=== PATIENT | male | born 1965 | race American Indian/Alaskan Native ===

== ENCOUNTER 2018-02-17 10:18 | Inpatient (IN) | payer MEDICAID ==
[2018-02-17 10:22] VITALS: BMI 28.5
[2018-02-17 10:24] VITALS: O2SAT 97
--- NOTE | 2018-02-17 10:53 | C.PDOC ---
History Of Present Illness 52 y/o male presents to the ED requesting detox from yesterday. He admits last using yesterday. The patient reports experiencing myalgia nausea. He denies any other drug use. The patient also denies any SI/HI, vomiting or SA. REQUESTING HEROIN DETOX, LAST YEST. +MYALGIA, NAUSEA. DENIES OTHER DRUG USE OR SX EXAM MILD DIST NONTOXIC PSYCH CALM COOPERATIVE, NO SI/SA, +MILD WITHDRAWAL REMAINDER NEG Time Seen by Provider: 02/17/18 10:29 Chief Complaint (Nursing): Substance Abuse History Per: Patient History/Exam Limitations: no limitations Onset/Duration Of Symptoms: Days Modifying Factor(s): Other (Heroin) Associated Symptoms: denies: Suicidal Thoughts, Suicidal Plan Recent travel outside of the [place]: No Past Medical History Reviewed: Historical Data, Nursing Documentation, Vital Signs Vital Signs: Last Vital Signs Temp 98.3 F 02/18/18 06:36 Pulse 49 L 02/18/18 06:36 Resp 18 02/18/18 06:36 BP 148/77 02/18/18 06:36 Pulse Ox 97 02/18/18 13:26 - Medical History PMH: No Chronic Diseases Other Surgeries: spine surgery Family History: States: Unknown Family Hx - Social History Hx Tobacco Use: Yes (>10 cigarettes a day) Hx Alcohol Use: No Hx Substance Use: Yes - Immunization History Hx Tetanus Toxoid Vaccination: No Hx Influenza Vaccination: No Hx Pneumococcal Vaccination: No Review Of Systems Except As Marked, All Systems Reviewed And Found Negative. Constitutional: Negative for: Fever, Chills, Sweats Gastrointestinal: Positive for: Nausea Musculoskeletal: Positive for: Other (myalgia) Psych: Positive for: Withdrawal. Negative for: Anxiety, Depression, Suicidal ideation, Other (Suicidal attempt) Physical Exam - Physical Exam Appears: Non-toxic, Other (Mild distress) Skin: Normal Color, Warm, Dry Head: Atraumatic, Normacephalic Eye(s): bilateral: Normal Inspection Ear(s): Bilateral: Normal Oral Mucosa: Moist Neck: Normal ROM Chest: Symmetrical Cardiovascular: Rhythm Regular, No Murmur Respiratory: Other (NARD) Pulses: Left Radial: Normal, Right Radial: Normal Neurological/Psych: Other (calm, cooperative, No SI/SA, mild withdrawal ) Gait: Steady ED Course And Treatment - Laboratory Results Result Diagrams: 02/17/18 11:26 02/17/18 11:26 O2 Sat by Pulse Oximetry: 97 (RA) Pulse Ox Interpretation: Normal Progress - Re-Evaluation Re-evaluation Note: 02/17/18 10:30 PT ADVISED NO DETOX BEDS AVAIL. OFFERED TO BE PUT ON PRESCREEN LIST. PT NOW STATES IS SUICIDAL AND NOW EXPRESSES MULTIPLE PLANS TO HURT HIMSELF DESPITE PREV DENYING BEING SUICIDAL ON INITIAL EXAM. S/P EVAL CRISIS [place], ADVISED PT OF PSYCH ADMISSION PROCESS. PT NO LONGER WISHES DETOX. 02/17/18 12:20 PAINLESS HEMATURIA, NO WBC, LE OR NITRATES. UCX SENT. RECOMMEND MED CONSULT PRN MED CLEAR FOR PSYCH. CRISIS NOTIFIED - Data Reviewed Data Reviewed: Lab, Diagnostic imaging, Old records Medical Decision Making Medical Decision Making: Impression: 52 y/o pt requesting detox from heroin. Last use yesterday. 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 - Scribe Statement The provider has reviewed the documentation as recorded by the Scribe (Gracie Rapp) All medical record entries made by the Scribe were at my direction and personally dictated by me. I have reviewed the chart and agree that the record accurately reflects my personal performance of the history, physical exam, medical decision making, and the department course for this patient. I have also personally directed, reviewed, and agree with the discharge instructions and disposition. Decision To Admit - Pt Status Changed To: Hospital Disposition Of: Inpatient - Admit Certification Admit to Inpatient:: After my assessment, the patient will require hospitalization for at least two midnights. This is because of the severity of symptoms shown, intensity of services needed, and/or the medical risk in this patient being treated as an outpatient. - InPatient: Physician Admission Certification: I certify that this patient requires 2 or more midnights of care for the following reason:: SEE NOTE - . Bed Request Type: Detox Admitting Physician: Denae Jorgensen Patient Diagnosis: Substance or medication-induced depressive disorder
[2018-02-17 11:32] LABS: BASO # 0.1 K/uL (0.0-0.2); BASO % 0.7 % (0.0-2.0); EOS # 0.1 K/uL (0.0-0.7); EOS % 0.9 % (0.0-4.0); HEMOGLOBIN 11.8 g/dL (12.0-18.0); LYMPH # 2.5 K/uL (1.0-4.3); LYMPH % 25.4 % (20.0-40.0); MEAN CELL VOLUME 89.6 fL (80.0-94.0); MEAN CORPUSCULAR HEMOGLOBIN 31.3 pg (27.0-31.0); MEAN PLATELET VOLUME 7.6 fL (7.2-11.7); MONO # 0.7 K/uL (0.0-0.8); MONO % 7.2 % (0.0-10.0); NEUT # 6.6 K/uL (1.8-7.0); NEUT % 65.8 % (50.0-75.0); RBC 3.76 Mil/uL (4.40-5.90); RED CELL DISTRIBUTION WIDTH 13.9 % (11.5-14.5)
[2018-02-17 11:39] LABS: SQUAMOUS EPITHIAL 1 /hpf (0-5); URINE BACTERIA OCC (<OCC); URINE BILIRUBIN NEGATIVE (NEGATIVE); URINE BLOOD 3+ (NEGATIVE); URINE CLARITY Hazy (Clear); URINE COLOR Yellow (YELLOW); URINE GLUCOSE (UA) NORMAL (Normal); URINE LEUKOCYTE ESTERASE NEG Leu/uL (Negative); URINE PROTEIN 1+ mg/dL (NEGATIVE); WBC CLUMPS FEW /hpf
[2018-02-17 11:47] LABS: ALB/GLOB RATIO 1.3 (1.0-2.1); ALBUMIN 3.7 g/dL (3.5-5.0); ALT/SGPT 36 U/L (21-72); AST/SGOT 37 U/L (17-59); BLOOD UREA NITROGEN 12 mg/dL (9-20); CALCIUM 8.7 mg/dl (8.6-10.4); GFR NON-AFRICAN AMERICAN > 60
[2018-02-17 11:52] LABS: BARBITURATES, UR NEGATIVE (NEGATIVE); BENZODIAZEPINES, UR NEGATIVE (NEGATIVE); PHENCYCLIDINE, UR NEGATIVE (NEGATIVE)
[2018-02-17 12:19] LABS: OPIATES, UR POSITIVE (NEGATIVE)
--- NOTE | 2018-02-17 15:03 | PCM.BM ---
<Candelaria Subramanian - Last Filed: 02/17/18 15:01> Treatment Plan Problems - Problems identified on initial assessmt depression Date Initiated: 02/17/18 Time Initiated: 15:02 Assessment reference: NA Status: Active substance abuse Date Initiated: 02/17/18 Time Initiated: 15:03 Assessment reference: NA Status: Active Treatment assets and liabiliti Patient Assests: cooperative, ADL independent, cognitively intact Patient Liabilities: poor support system, substance abuse - Milieu Protocol Maintain good personal hygiene: daily Encourage regular showers Conduct patient checks and document Observation sheet: Q15 minutes Maintain personal safety: every shift Educate patient to report safety concerns to staff, every shift Monitor environment for contraband/sharps Medication safety: Monitor for expected outcome, potential side effects: every shift, Assess barriers to learning: every shift, Assess readiness for medication education: every shift <Denae Jorgensen - Last Filed: 02/19/18 11:18> - Diagnosis (1) Major depressive disorder, recurrent severe without psychotic features Status: Acute Interventions: 02/19/18 11:19 * Assess/adjust medications daily and /or as needed * See patient on an individual basis 7x/week to assess symptoms of depression * Monitor for side effects & effectiveness of medications * (2) Opioid use disorder, severe, dependence Status: Acute Interventions: 02/19/18 11:20 * Assess 7x/week regarding severity of withdrawal * Educate regarding risks, benefits, side effects and alternatives of medications * Use Motivational Interviewing for abstinence * Use CBT for relapse prevention * Medication management for withdrawal symptoms * Encourage medication assisted treatment * <Qian Nj - Last Filed: 02/19/18 14:53> Family Contact Family involvement: Patient does not wish Family/SO involvement Family contact: Patient declines to allow family contact at present - Goals for Treatment Patient goals for treatment: " I want to go to an outpatient program for treatment."
[2018-02-17] MEDS ORDERED: Aluminum Hydroxide/Magnesium Hydroxide Susp (30 mL) PO PRN (15:18)
--- NOTE | 2018-02-18 12:33 | PCM.PSYCH ---
Initial Psychiatric Evaluation - Initial Psychiatric Evaluation Type of Admission: Voluntary Legal Status: Capacity Chief Complaint (in patient's own words): I was feeling depressed and suicidal History of Present Illness and Precipitating Events: Patient was a 52 year old male seeking inpatient psychiatric services due to depression, substance use and suicidal ideation with plan to overdose. Patient reported history of auditory hallucinations, however, uncertain "if it's my own voice or just in my head". Patient also noted history of visual hallucinations while under the influcence. Patient reported "seeing shadows chasing me around" . Patient denied the presence of tactile, gustatory and olfactory hallucinations. Patient reported past history of homicidal ideations at the time of interview with plan to "shoot people that did something to me to make me feel better". Patient reported thoughts were present last year. Patient reported having a previous suicide attempt by overdose, however, noted that he became unconscious and awoke at a later time. Patient denied seeking services after this attempt. Patient reported using 20 bags of heroin- IV on a daily basis. Patient reported last use was 02/15/2018. Patient reported using Suboxone ( off the street) about 2 months ago. Patient reported using 3-4 strips per day. Patient reported using Xanax (2-3 sticks per day) at age 14. Patient reported last use was 8 years ago. Patient also reported history of crack cocaine use about 1 year ago. Patient reported having a past inpatient psychiatric admission to [facility] many years ago. Patient reported history of past rehabilitaiton treatment for substance abuse. Patient noted past admissions to [facility] and [facility], Treatment [facility] incarcerated at the [facility], [facility] and [facility]. Patient reports of depressed mood, at times feelings of hopelessness and helplessness and poor sleep and poor appetite. He also report AH and paranoia. PMH: None reported Current Medications: Active Medications Generic Name Dose Route Start Last Admin Trade Name Freq PRN Reason Stop Dose Admin Al Hydrox/Mg Hydrox/Simethicone 30 ml 02/17/18 15:18 Maalox 30 Ml PO TID PRN Indigestion / Heartburn Clonidine HCl 0.1 mg 02/17/18 15:18 02/17/18 20:16 Catapres PO 0.1 mg Q8 PRN Administration COWS Score More or Equal to 5 Hydroxyzine HCl 25 mg 02/17/18 15:18 02/18/18 10:19 Atarax PO 25 mg Q6 PRN Administration Agitation Loperamide HCl 2 mg 02/17/18 15:18 Imodium PO Q8 PRN Diarrhea Ondansetron HCl 4 mg 02/17/18 15:18 02/18/18 09:28 Zofran Tab PO 4 mg Q8 PRN Administration Nausea/Vomiting Pneumococcal Polyvalent Vaccine 0.5 ml 02/20/18 10:00 Pneumovax 23 Vaccine IM 02/20/18 10:01 .ONCE ONE Pseudoephedrine HCl 60 mg 02/17/18 15:18 Sudafed Tab PO QID PRN Nasal/Sinus Congestion Past Psychiatric History - Past Psychiatric History Previous Treatment History: Inpatient Pertinent Medical Hx (Current Medical&Sleep Prob, Allergies): Allergies Allergy/AdvReac Type Severity Reaction Status Date / Time No Known Allergies Allergy Verified 02/17/18 10:21 No Known Home Med 02/17/18 Review of Systems - Review of Systems All systems: reviewed and no additional remarkable complaints except - Psychiatric Psychiatric: Anxiety, Auditory Hallucinations, Irritability, Paranoia, Suicidal Ideation Mental Status Examination - Personal Presentation Personal Presentation: Looks stated age - Affect Affect: Constricted, Depressed - Motor Activity Motor Activity: Calm - Reliability in Providing Information Reliability in Providing Information: Good - Speech Speech: Organized - Mood Mood: Depressed, Anxious - Formal Thought Process Formal Thought Process: Hallucinations, Delusions, Paranoia - Hallucinations/Delusions Hallucinations: Visual, Auditory Delusions: Persecution - Obsessions/Compulsions Obsessions: No Compulsions: No - Cognitive Functions Orientation: Person, Place, Situation, Time Sensorium: Alert Attention/Concentration: Attentive Abstract Thinking: [place] Estimate of Intelligence: Below average Judgement: Imparied, as evidence by: Poor judgement, Imparied, as evidence by: Lack of insight into illness - Risk Risk: Suicidal, Diminished functioning - Limitations Limitations: Living alone DSM 5 DX - DSM 5 DSM 5 Diagnosis: Major depressive disorder recurrent severe with psychotic features Opiate use disorder severe Opiate withdrawal Sedative /Hypnotic use disorder moderate - Recommended/Plan of Treatment Treatment Recommendations and Plan of Treatment: Major depressive disorder recurrent severe with psychotic features Opiate use disorder severe Opiate withdrawal Sedative /Hypnotic use disorder moderate CBT Psychoeducation Supportive therapy, group therapy, individual therapy Trazodone 100 mg by mouth daily at bedtime Hydroxyzine 25 mg by mouth every 6 hours when necessary Gabapentin 300 mg po TID Sertraline 50 mg PO Daily Clonidine when necessary Methadone taper As necessary meds - Smoking Cessation Smoking Cessation Initiated: No
--- NOTE | 2018-02-19 14:23 | PCM.PYCHPN ---
Psychiatric Progress Note - Psychiatric Progress Note Patient seen today, length of contact: 16 min Patient Chief Complaint: I was feeling depressed and suicidal Problems Identified/Issues Discussed: The pt is seen, chart reviewed, case discussed with staff. The pt is compliant with medications and reports no side-effects. Symptoms are improving but needs more time to stabilize. Pt attends groups and activities. Support given, psycho-education provided. After care discussed. Medication Change: Yes Medical Record Reviewed: Yes Mental Status Examination - Cognitive Function Orientation: Person, Place, Situation, Time Memory: Intact Attention: WNL Concentration: Poor Association: WNL Fund of Knowledge: Poor - Mood Mood: Depressed, Anxious - Affect Affect: Constricted, Depressed - Speech Speech: Soft - Formal Thought Process Formal Thought Process: Hallucinations, Delusions, Paranoia - Suicidal Ideation Suicidal Ideation: No - Homicidal Ideation Homicidal Ideation: No Goal/Treatment Plan - Goal/Treatment Plan Need for Continued Stay: Severe depression anxiety, Severe functional impairment Progress Toward Problem(s) and Goals/Treatment Plan: Major depressive disorder recurrent severe with psychotic features Opiate use disorder severe Opiate withdrawal Sedative /Hypnotic use disorder moderate CBT Psychoeducation Supportive therapy, group therapy, individual therapy Trazodone 100 mg by mouth daily at bedtime Hydroxyzine 25 mg by mouth every 6 hours when necessary Gabapentin 300 mg po TID Sertraline 50 mg PO Daily Clonidine when necessary Methadone taper As necessary meds
[2018-02-20] MEDS ORDERED: Pneumococcal 23-Valent Vaccine IM ONE (10:00)
[2018-02-21 06:12] VITALS: RESP 18
[2018-02-22 06:34] VITALS: BP 127/83; PULSE 83; TEMP 98.8
--- NOTE | 2018-02-22 10:28 | PCM.PYCHDC ---
Mental Status Examination - Mental Status Examination Orientation: Person, Place, Situation, Time Memory: Intact Mood: Neutral Affect: Constricted Speech: Soft Attention: WNL Concentration: WNL Association: WNL Fund of Knowledge: WNL Formal Thought Process: No Impairment Description of patient's judgement and insight: good, fair Psychotic Thoughts and Behaviors: denies any AVH Suicidal Ideation: No Current Homicidal Ideation?: No Discharge Summary - Discharge Note Reason for Hospitalization: Patient was a 52 year old male seeking inpatient psychiatric services due to depression, substance use and suicidal ideation with plan to overdose. Patient reported history of auditory hallucinations, however, uncertain "if it's my own voice or just in my head". Patient also noted history of visual hallucinations while under the influcence. Patient reported "seeing shadows chasing me around" . Patient denied the presence of tactile, gustatory and olfactory hallucinations. Patient reported past history of homicidal ideations at the time of interview with plan to "shoot people that did something to me to make me feel better". Patient reported thoughts were present last year. Patient reported having a previous suicide attempt by overdose, however, noted that he became unconscious and awoke at a later time. Patient denied seeking services after this attempt. Patient reported using 20 bags of heroin- IV on a daily basis. Patient reported last use was 02/15/2018. Patient reported using Suboxone ( off the street) about 2 months ago. Patient reported using 3-4 strips per day. Patient reported using Xanax (2-3 sticks per day) at age 14. Patient reported last use was 8 years ago. Patient also reported history of crack cocaine use about 1 year ago. Patient reported having a past inpatient psychiatric admission to [facility] many years ago. Patient reported history of past rehabilitaiton treatment for substance abuse. Patient noted past admissions to [facility], Treatment while incarcerated at the [facility], [facility] and [facility]. Patient reports of depressed mood, at times feelings of hopelessness and helplessness and poor sleep and poor appetite. He also report AH and paranoia. Consultations:: List each consultation separately and include: 1. Reason for request. 2. Findings. 3. Follow-up Summary of Hospital Course include:: 1. Description of specific treatment plan utilized for patients during their course of treatmen. 2. Summarize the time- course for resolution of acute symptoms and/or regressed behaviors. 3. Describe issues identified and worked on during hospitalization. 4. Describe medication utilized. 5. Describe medical problems identified and treated. 6. Reassessment of suicide risk Summary of Hospital Course: Patient was a 52 year old male seeking inpatient psychiatric services due to depression, substance use and suicidal ideation with plan to overdose. Patient reported history of auditory hallucinations, however, uncertain "if it's my own voice or just in my head". Patient also noted history of visual hallucinations while under the influcence. Patient reported "seeing shadows chasing me around" . Patient denied the presence of tactile, gustatory and olfactory hallucinations. Patient reported past history of homicidal ideations at the time of interview with plan to "shoot people that did something to me to make me feel better". Patient reported thoughts were present last year. Patient reported having a previous suicide attempt by overdose, however, noted that he became unconscious and awoke at a later time. Patient denied seeking services after this attempt. Patient reported using 20 bags of heroin- IV on a daily basis. Patient reported last use was 02/15/2018. Patient reported using Suboxone ( off the street) about 2 months ago. Patient reported using 3-4 strips per day. Patient reported using Xanax (2-3 sticks per day) at age 14. Patient reported last use was 8 years ago. Patient also reported history of crack cocaine use about 1 year ago. Patient reported having a past inpatient psychiatric admission to [facility] many years ago. Patient reported history of past rehabilitaiton treatment for substance abuse. Patient noted past admissions to [facility] and [facility], Treatment while incarcerated at the [facility], [facility] and [facility]. Patient reports of depressed mood, at times feelings of hopelessness and helplessness and poor sleep and poor appetite. He also report AH and paranoia. PMH: None reported - Diagnosis (1) Major depressive disorder, recurrent severe without psychotic features Current Visit: Yes Status: Acute (2) Opioid use disorder, severe, dependence Current Visit: Yes Status: Acute - Final Diagnosis (DSM 5) Condition upon Discharge: STABLE DSM 5: Major depressive disorder recurrent severe with psychotic features Opiate use disorder severe Opiate withdrawal Sedative /Hypnotic use disorder moderate Disposition: HOME/ ROUTINE Follow-up Treatment Plan: Major depressive disorder recurrent severe with psychotic features Opiate use disorder severe Opiate withdrawal Sedative /Hypnotic use disorder moderate CBT Psychoeducation Supportive therapy, group therapy, individual therapy Trazodone 100 mg by mouth daily at bedtime Hydroxyzine 25 mg by mouth every 6 hours when necessary Gabapentin 300 mg po TID Sertraline 50 mg PO Daily Clonidine when necessary Methadone taper As necessary meds - Smoking Cessation Smoking Cessation Medication prescribed: No - Antipsychotic Medications Pt discharged on 2 or more routine antipsychotic medications: No
--- NOTE | 2018-02-22 10:28 | PCM.PYCHPN ---
Psychiatric Progress Note - Psychiatric Progress Note Patient seen today, length of contact: 16 min Patient Chief Complaint: I was feeling depressed and suicidal Problems Identified/Issues Discussed: The pt is seen, chart reviewed, case discussed with staff. The pt is compliant with medications and reports no side-effects. Symptoms are improving but needs more time to stabilize. Pt attends groups and activities. Support given, psycho-education provided. After care discussed. Medication Change: Yes Medical Record Reviewed: Yes Mental Status Examination - Cognitive Function Orientation: Person, Place, Situation, Time Memory: Intact Attention: WNL Concentration: WNL Association: WN Fund of Knowledge: [facility] Decription of patient's judgement and insights: good, fair - Mood Mood: Neutral - Affect Affect: Constricted - Speech Speech: Soft - Formal Thought Process Formal Thought Process: No Impairment Psychotic Thoughts and Behaviors: denies any AVH - Suicidal Ideation Suicidal Ideation: No - Homicidal Ideation Homicidal Ideation: No Goal/Treatment Plan - Goal/Treatment Plan Need for Continued Stay: Severe depression anxiety, Severe functional impairment Progress Toward Problem(s) and Goals/Treatment Plan: Major depressive disorder recurrent severe with psychotic features Opiate use disorder severe Opiate withdrawal Sedative /Hypnotic use disorder moderate CBT Psychoeducation Supportive therapy, group therapy, individual therapy Trazodone 100 mg by mouth daily at bedtime Hydroxyzine 25 mg by mouth every 6 hours when necessary Gabapentin 300 mg po TID Sertraline 50 mg PO Daily Clonidine when necessary Methadone taper As necessary meds
== END 2018-02-22 11:00 | disposition home or self-care (01) | DRG 430 ==
LOC: C.ER 10:18 → C.5E 13:12
PROVIDERS: ADMIT Psychiatry & Neurology Psychiatry; ATTEND Psychiatry & Neurology Psychiatry
PROC: GZHZZZZ Group Psychotherapy (ICD-10-PCS; principal; 2018-02-17)
PROC: GZ56ZZZ Individual Psychotherapy, Supportive (ICD-10-PCS; 2018-02-17)
DX: F33.3 Major depressive disorder, recurrent, severe with psychotic symptoms (principal); F11.23 Opioid dependence with withdrawal; R45.851 Suicidal ideations; F17.210 Nicotine dependence, cigarettes, uncomplicated

== ENCOUNTER 2018-05-02 21:07 | Emergency (ER) | payer MEDICAID ==
[2018-05-02 21:08] VITALS: BMI 28.5
[2018-05-02] MEDS ORDERED: Sodium Chloride 0.9% 1,000 ML IV ONE (21:50)
[2018-05-02] MEDS ORDERED: Albuterol 0.083% Inhal Sol (2.5 mg/3 mL) UD IH STA (21:51)
--- NOTE | 2018-05-02 22:05 | C.PDOC ---
History Of Present Illness 52 year old male, with no significant past medical history, presents to the ED for evaluation after having two episodes of shortness of breath that had sudden onset earlier today. Patient states the first episode woke him from his sleep and the second occurred during the evening while he was at work. Patient also reports a tightness in his chest, like he cannot get in any air from neither his nose nor his mouth. Patient states, " I feel like I'm going to take my last breath." Patient also reports dryness in his throat and feels like he has to cough in order to clear his airway. Patient denies having cough prior to today. He reports experiencing a similar episode in the past, which was milder compared to current. He also denies fever, chills, history of asthma. Patient reports social history of smoking. Time Seen by Provider: 05/02/18 21:34 Chief Complaint (Nursing): Medical Clearance History Per: Patient History/Exam Limitations: no limitations Onset/Duration Of Symptoms: Hrs Current Symptoms Are (Timing): Still Present Additional History Per: Patient Past Medical History Reviewed: Historical Data, Nursing Documentation, Vital Signs Vital Signs: Last Vital Signs Temp 98.3 F 05/02/18 21:12 Pulse 93 H 05/02/18 21:12 Resp 18 05/02/18 21:12 BP 122/81 05/02/18 21:12 Pulse Ox 96 05/02/18 21:12 - Medical History PMH: No Chronic Diseases Denies: Diabetes (Patient denied), Hepatitis (Patient denied), HIV (Patient denied), HTN (Patient denied), Seizures (Patient denied), Sexually Transmitted Disease (Patient denied) Surgical History: No Surg Hx - [facility] Procedures GROUP PSYCHOTHERAPY (02/17/18) INDIVIDUAL PSYCHOTHERAPY, SUPPORTIVE (02/17/18) Family History: States: Unknown Family Hx - Social History Hx Tobacco Use: Yes (>10 cigarettes a day) Hx Alcohol Use: No Hx Substance Use: No (stopped a year ago) - Immunization History Hx Tetanus Toxoid Vaccination: No Hx Influenza Vaccination: No Hx Pneumococcal Vaccination: No Review Of Systems Constitutional: Negative for: Fever, Chills ENT: Positive for: Other (dryness to throat ) Respiratory: Positive for: Cough, Shortness of Breath, Other (chest tightness ) Physical Exam - Physical Exam Appears: Non-toxic, No Acute Distress, Other (anxious ) Skin: Normal Color, Warm, Dry Head: Atraumatic, Normacephalic Eye(s): bilateral: Normal Inspection Oral Mucosa: Moist Throat: Normal, No Erythema, No Exudate, No Drooling, Other (uvula at midline, no swelling ) Neck: Supple Chest: Symmetrical, No Deformity, No Tenderness Cardiovascular: Rhythm Regular, No Murmur Respiratory: Normal Breath Sounds, No Rales, No Rhonchi, No Wheezing, Other (patient is speaking in full sentences, occasionally coughing to clear his airway ) Gastrointestinal/Abdominal: Soft, No Tenderness, No Guarding, No Rebound Extremity: Normal ROM Neurological/Psych: Oriented x3, Normal Speech, Normal Cognition ED Course And Treatment - Laboratory Results Result Diagrams: 05/02/18 22:24 05/02/18 22:24 Lab Interpretation: No Acute Changes ECG: Interpreted By Me ECG Rhythm: Sinus Rhythm ECG Interpretation: No Acute Changes O2 Sat by Pulse Oximetry: 96 (on RA) Pulse Ox Interpretation: Normal - Radiology CXR: Interpreted by Me CXR Interpretation: Yes: No Acute Disease Progress Note: Bloodwork, CXR, EKG ordered and reviewed. Albuterol INH and IV Fluids given. Reevaluation Time: 22:57 Reassessment Condition: Improved Disposition Counseled Patient/Family Regarding: Studies Performed, Diagnosis, Need For Followup - Disposition Referrals: [facility] [Outside] Disposition: HOME/ ROUTINE Disposition Time: 22:59 Condition: IMPROVED Instructions: Shortness of Breath (Dyspnea) (DC) Forms: [facility] (Lithuanian) - Clinical Impression Clinical Impression: Shortness of breath - Scribe Statement The provider has reviewed the documentation as recorded by the Scribe (Leora Washburn) Provider Attestation: All medical record entries made by the Scribe were at my direction and personally dictated by me. I have reviewed the chart and agree that the record accurately reflects my personal performance of the history, physical exam, medical decision making, and the department course for this patient. I have also personally directed, reviewed, and agree with the discharge instructions and disposition.
[2018-05-02 22:27] LABS: BASO # 0.1 K/uL (0.0-0.2); BASO % 0.9 % (0.0-2.0); EOS # 0.1 K/uL (0.0-0.7); EOS % 0.9 % (0.0-4.0); HEMOGLOBIN 12.3 g/dL (12.0-18.0); LYMPH # 4.7 K/uL (1.0-4.3); LYMPH % 40.1 % (20.0-40.0); MEAN CELL VOLUME 90.3 fL (80.0-94.0); MEAN CORPUSCULAR HEMOGLOBIN 30.1 pg (27.0-31.0); MEAN CORPUSCULAR HGB CONC 33.3 g/dL (33.0-37.0); MEAN PLATELET VOLUME 8.3 fL (7.2-11.7); MONO % 8.2 % (0.0-10.0); NEUT # 5.9 K/uL (1.8-7.0); NEUT % 49.9 % (50.0-75.0); RBC 4.08 Mil/uL (4.40-5.90); WHITE BLOOD COUNT 11.7 K/uL (4.8-10.8)
[2018-05-02 22:47] LABS: ALB/GLOB RATIO 1.2 (1.0-2.1); ALBUMIN 4.3 g/dL (3.5-5.0); ALT/SGPT 57 U/L (21-72); AST/SGOT 81 U/L (17-59); BLOOD UREA NITROGEN 18 mg/dL (9-20); CALCIUM 9.5 mg/dl (8.6-10.4); GFR NON-AFRICAN AMERICAN > 60
[2018-05-02 23:07] VITALS: BP 128/70; PULSE 87; RESP 20; TEMP 98; O2SAT 98
--- NOTE | 2018-05-03 11:34 | RAD ---
Date of service: 05/02/2018 HISTORY: SOB COMPARISON: No prior. TECHNIQUE: Chest PA and lateral FINDINGS: LUNGS: No active pulmonary disease. PLEURA: No significant pleural effusion identified. No pneumothorax apparent. CARDIOVASCULAR: No aortic atherosclerotic calcification present. Normal cardiac size. No pulmonary vascular congestion. OSSEOUS STRUCTURES: No significant abnormalities. VISUALIZED UPPER ABDOMEN: Normal. OTHER FINDINGS: None. IMPRESSION: No active disease.
--- NOTE | 2018-05-05 20:05 | CARD ---
APPROVED REPORT Date of service: 05/02/2018 EKG Measurement Heart [id number] <Conclusion> Normal sinus rhythm Nonspecific T wave abnormality Prolonged QT Abnormal ECG
== END 2018-05-02 23:07 | disposition home or self-care (01) ==
LOC: C.ER 21:07
DX: R06.02 Shortness of breath (principal); F17.210 Nicotine dependence, cigarettes, uncomplicated
CPT/HCPCS: 71046; 80053; 85025; 93005; 94640; 96360; 99282; J7030

== ENCOUNTER 2018-05-28 06:52 | Emergency (ER) | payer MEDICAID ==
[2018-05-28 06:52] VITALS: BMI 28.5
[2018-05-28 07:02] VITALS: TEMP 98.1
[2018-05-28 07:28] VITALS: RESP 18
[2018-05-28] MEDS ORDERED: Albuterol 0.083% Inhal Sol (2.5 mg/3 mL) UD IH STA (07:39)
--- NOTE | 2018-05-28 07:46 | C.PDOC ---
History Of Present Illness 52 yo male, smoker, comes in for medical evaluation. Pt sts, " was driving in car and almost choke on my phlegm, its so thick". Otherwise, pt denies recent illness, fever, chills, headache, dizziness, drooling, denies CP SOB, dyspnea, wheezing, palpitation, diaphoresis, abd. pain, V/D, back pain. At present time, appears comfortable, not in any apparent distress. Time Seen by Provider: 05/28/18 07:22 Chief Complaint (Nursing): Shortness Of Breath History Per: Patient Past Medical History Reviewed: Historical Data, Nursing Documentation, Vital Signs Vital Signs: Last Vital Signs Temp 98.1 F 05/28/18 07:01 Pulse 84 05/28/18 07:01 Resp 18 05/28/18 07:26 BP 131/66 05/28/18 07:01 Pulse Ox 98 05/28/18 07:26 - Medical History PMH: Fractures (C4C5 30 yrs ago while playing football) Denies: Diabetes (Patient denied), Hepatitis (Patient denied), HIV (Patient denied), HTN (Patient denied), Chronic Kidney Disease, Seizures (Patient denied), Sexually Transmitted Disease (Patient denied) - [facility] Procedures GROUP PSYCHOTHERAPY (02/17/18) INDIVIDUAL PSYCHOTHERAPY, SUPPORTIVE (02/17/18) Family History: States: Unknown Family Hx - Social History Hx Tobacco Use: Yes (>10 cigarettes a day) Hx Alcohol Use: No Hx Substance Use: No (stopped a year ago) - Immunization History Hx Tetanus Toxoid Vaccination: No Hx Influenza Vaccination: No Hx Pneumococcal Vaccination: No Review Of Systems Except As Marked, All Systems Reviewed And Found Negative. Constitutional: Negative for: Fever, Chills Eyes: Negative for: Vision Change ENT: Negative for: Ear Discharge, Nose Discharge Cardiovascular: Negative for: Chest Pain, Palpitations, Edema, Light Headedness Respiratory: Negative for: Cough, Shortness of Breath, Wheezing Gastrointestinal: Negative for: Nausea, Vomiting, Abdominal Pain Musculoskeletal: Negative for: Neck Pain, Back Pain Neurological: Negative for: Weakness, Numbness, Headache, Dizziness Physical Exam - Physical Exam Appears: Well, Non-toxic, No Acute Distress Skin: Normal Color, Warm, Dry Eye(s): bilateral: PERRL Nose: No Flaring, No Discharge Oral Mucosa: Moist Throat: No Erythema Neck: Trachea Midline, Supple Cardiovascular: Rhythm Regular, No Murmur, No JVD Respiratory: No Decreased Breath Sounds, No Accessory Muscle Use, No Stridor, No Wheezing Gastrointestinal/Abdominal: Soft, No Tenderness Back: No CVA Tenderness Extremity: Normal ROM, No Pedal Edema Neurological/Psych: Oriented x3, Normal Speech ED Course And Treatment O2 Sat by Pulse Oximetry: 98 Pulse Ox Interpretation: Normal Progress Note: CXR offered to patient-refused. On re-eval, pt damaris febrile, hemoydnmaicaly stable. non--toxic. PuslEOx 98% RA. ENTL no acute finidngs. neck: Supple, (-) JVD, (-) carotid bruits. Lungs: CTA B/L, BS equal B/L. CVS: (+)S1S2, reg. Neurologicaly intact. Pt has clinical findings c/w chr. bronchitis with productive cough. Pt advised. ref. to F/u with PMD, Pulm in 2- 3 days fr re-eval. return if any new changes. Disposition Counseled Patient/Family Regarding: Diagnosis, Need For Followup, Rx Given - Disposition Referrals: Adrian Field MD [Staff Provider] - Disposition: HOME/ ROUTINE Disposition Time: 07:41 Condition: STABLE Additional Instructions: Use inhaler treatment as prescribed daily AIr humidifier in room Follow up with PMD, Pulmology in 2-3 days for re-evaluation. return to ED if any worsening or new changes. Prescriptions: Albuterol HFA [Ventolin HFA 90 mcg/actuation (8 g)] 1 puff IH Q6 #1 inhaler Instructions: Chronic Bronchitis - Clinical Impression Clinical Impression: Bronchitis
[2018-05-28] MEDS ORDERED: Albuterol 0.083% Inhal Sol (2.5 mg/3 mL) UD ONE (07:47)
[2018-05-28 08:14] VITALS: BP 121/72; PULSE 73; O2SAT 99
== END 2018-05-28 08:14 | disposition home or self-care (01) ==
LOC: C.ER 06:52
DX: J40 Bronchitis, not specified as acute or chronic (principal); Z87.891 Personal history of nicotine dependence